=== PATIENT | female | born 2000 | race Two or more races ===

== ENCOUNTER 2025-04-28 02:37 | Emergency (ER) | payer MEDICAID, SELFPAY ==
[2025-04-28 02:59] VITALS: BP 114/77; PULSE 73; RESP 16; TEMP 37; O2SAT 98
--- NOTE | 2025-04-28 03:09 | EDNOTE_ITS ---
ED Headache RME/HPI General Chief Complaint: Headache Stated Complaint: HEADACHE X 2 DAYS Time Seen by Provider: 04/28/25 03:08 Arrival date/time: 04/28/25 02:37 24F with history of migraines presents to ED with 2 days of MCDERMOTT, N/V, and some light sensitivity. Patient took some Tylenol and generic Excedrin with only some relief. Patient denies URI symptoms and fall/trauma. Limitations: no limitations Related Data Previous Rx's ?Medication ?Instructions ?Recorded rimegepant 75 mg disintegrating 75 mg PO Q OTHER DAY P RN migraine 04/18/23 tablet (Nurtec ODT) headache #16 tabs misoprostol 200 mcg tablet 800 mcg (4 x 200 mcg) PO .x 1 #1 tab 08/16/23 (Cytotec) ibuprofen 600 mg tablet 600 mg PO TID PRN pain #30 t abs 08/27/23 rizatriptan 10 mg disintegrating See Rx Instructions P O .COMPLEX 04/28/25 tablet (Maxalt-REMEDIATION PROJECT ENGINEER) #20 tabs Allergies Allergy/AdvReac Type Severity Reaction Status Date / Time No Known Allergies Allergy Verified 04/28/25 02:42 Review of Systems Review of Systems Systems Reviewed: All systems reviewed, normal except as documented Constitutional Constitutional: Reports as per HPI and Reports headache(s) Eyes Eyes: Reports as per HPI and Reports photophobia ENT Ears, Nose, Mouth, and Throat: Reports headache(s) Gastrointestinal Gastrointestinal: Reports as per HPI and Reports nausea Neurologic Neurologic: Reports headache(s) Past Medical History Past Medical History NEUROLOGIC: Negative Neurological Disorders or Seizures CARDIAC: Negative Cardiac Disorders or Congestive Heart Failure RESPIRATORY: Negative Chronic Obstructive Pulmonary Disease (COPD) GASTROINTESTINAL: Negative Gastrointestinal Disorders GENITOURINARY: Negative Genitourinary Disorders or Renal Disease REPRODUCTIVE: Negative Pelvic Inflammatory Disease MUSCULOSKELETAL: Negative Musculoskeletal Disorders ENDOCRINE: Negative Endocrine Disorders, Diabetes Mellitus Type 1 or Diabetes Mellitus Type 2 HEMATOLOGIC: Negative Blood Disorders OTHER HISTORY: Negative Autoimmune Disease, Blood Transfusions, Blood Transfusion Reaction or Anesthesia Reactions Surgical History SURGICAL: Negative Section Social History SMOKING STATUS: Never smoker ED Exam General Limitations: Present no limitations General appearance: Present alert and in no apparent distress Head Head exam: Present atraumatic Eye Eye exam: Present normal appearance, PERRL and EOMI Neck Neck exam: Present normal inspection, full ROM and trachea midline Chest Chest inspection: Present normal inspection and symmetric chest wall rise Neurological Exam Neurological exam: Present alert and oriented X3 Psychiatric Psychiatric exam: Present normal affect and normal mood Skin Skin exam: Present warm, dry, intact and normal color Course Quality Measures none Orders Category Date Time Status Metoclopramide [Reglan] Med 04/28/25 03:08 Discontinued 10 mg PO X1 ONE SUMAtriptan INJ [Imitrex Inj] Med 04/28/25 03:08 Discontinued 6 mg SC X1 ONE Vital Signs Vital signs: Vital Signs Temperature 98.6 F 04/28/25 02:59 Pulse Rate 73 04/28/25 02:59 Respiratory Rate 16 04/28/25 02:59 Blood Pressure 114/77 04/28/25 02:59 Pulse Oximetry (%) 98 04/28/25 02:59 Oxygen Delivery Method Room Air 04/28/25 02:59 O2 at 98% on RA and WNLs Headache MDM Narrative MDM Narrative:: 24F with history of migraines presents to ED with 2 days of MCDERMOTT, N/V, and some light sensitivity. Patient took some Tylenol and generic Excedrin with only some relief. Patient denies URI symptoms and fall/trauma. Physical exam reveals normal pupil response and EOM. Gait normal. Speech normal. Patient is afebrile, calm, and alert. Migraine meds improved symptoms. Patient data External records reviewed:: [facility] previous records Clinical information provided by:: patient Social determinants that could affect healthcare access:: none Patient has the following chronic illnesses:: migraine How is presenting disease/condition affected by chronic disease/condition?: caused by Evaluation data The following diagnostics were reviewed and interpreted by me:: other (specify) (none) Lab and/or radiology exams considered but not ordered:: not ordered Interpretation Summary: n/a Medications / Prescriptions Medications or Prescriptions considered but not ordered:: ordered Medication administrations:: Medication Administration History Discontinued Medications Metoclopramide HCl (Metoclopramide 5 Mg Tablet) 10 mg PO X1 ONE Stop: 04/28/25 03:09 Last Admin: 04/28/25 03:46 Dose: 10 mg Documented By: LARA Sumatriptan Succinate (Sumatriptan Inj 6 Mg/0.5 Ml Vial) 6 mg SC X1 ONE Stop: 04/28/25 03:09 Last Admin: 04/28/25 03:46 Dose: 6 mg Documented By: RC above Consultations Consultation(s) initiated? (list below): No Diagnosis Differential diagnosis headache: migraine, tension headache, subarachnoid hemorrhage, headache, meningitis, sinusitis and postconcussion syndrome Most likely diagnosis given after review of the tests above:: migraine Admission Indicated Admission indicated?: not indicated Admission Request Was there a request for admission?: No Disposition Plan Disposition Plan: Discharge Discharge Attestation Discharge Attestation: The patient and all family members were given an opportunity to ask questions and understood the discharge instructions. Discharge instructions specifically effects, indications for sooner follow up or return to the emergency department, and the expected course of current diagnosis. Patient condition: Stable Discharge Plan Plan Patient Disposition: HOME (Self Care) Discharge Disposition comment: Stable Prescriptions/Referrals Prescriptions/Med Rec: New rizatriptan [Maxalt-REMEDIATION PROJECT ENGINEER] 10 mg tablet,disintegrating See Rx Instructions .ROUTE .COMPLEX Qty: 20 0RF Rx Instructions: take 1 tab at onset of headache; if no relief may repeat 1 tab after at least 2 hrs; max = 3 tabs/24 hr No Action Nurtec ODT 75 mg tablet,disintegrating 75 mg PO Q OTHER DAY PRN (Reason: migraine headache) Qty: 16 0RF misoprostol [Cytotec] 200 mcg tablet 800 mcg PO .x1 Qty: 1 0RF ibuprofen 600 mg tablet 600 mg PO TID PRN (Reason: pain) Qty: 30 0RF Referrals: Deny Mcduffie MD [Primary Care Provider, Family Practice] - In 1 week Problem List Clinical Impression: Migraine Patient/Caregiver Discharge Instructions Education Materials: ED Headache, Migraine, Classic Additional Instructions: Please follow-up with PCP within 24-48 hours and return immediately if symptoms worsen. Print Language: Amharic Stand Alone Forms: Patient Portal Info Letter AUGUSTINA/SHELLI Supervising Physician AUGUSTINA/SHELLI Supervising Physician: Dr. Lucas
[2025-04-28] MEDS: SUMAtriptan INJ 6 MG/0.5 ML VIAL SC (03:46)
[2025-04-28] MEDS: METOCLOPRAMIDE 5 MG TABLET 10 MG PO (03:46)
== END 2025-04-28 04:52 | disposition home or self-care (01) ==
PROVIDERS: Emergency Provider Emergency Medicine; PCP Family Medicine
DX: G43.909 Migraine, unspecified, not intractable, without status migrainosus (principal)
CPT/HCPCS: 96372; 99283; J3030; A9270

== ENCOUNTER 2025-05-15 13:51 | Emergency (ER) | payer MEDICAID, SELFPAY ==
[2025-05-15 14:39] VITALS: BP 105/67; PULSE 64; RESP 18; TEMP 36.7; O2SAT 99
--- NOTE | 2025-05-15 14:57 | XR_ITS ---
Examination: CT brain head without contrast. 2-D sagittal coronal reconstructions Date and time of exam: May 15, 2025, 1651 hours, comparison 04/18/2023 INDICATIONS: Onset generalized head pain today CTDI: vol (mGy): 46.6 DLP: (mGycm): 941 Technique: Multiple CT axial sections of the brain have been obtained, 5 mm slice thickness. Contrast has not been administered. 2-D sagittal, coronal reconstructions have been obtained Low dose protocols were performed. One or more of the following dose reduction techniques were used; automated exposure control, adjustment of the mA and/or KV according to patient size, use of iterative reconstruction technique. Findings: No significant ventricular enlargement. Intra-axial or extra-axial hemorrhage density is not seen. No mass effect or midline shift Basal cisterns are not remarkable. Fourth ventricle is midline. Cranial vault intact. Impression: Negative for acute hemorrhage, mass effect or midline shift Advise clinical correlation and follow-up accordingly
[2025-05-15 15:39] LABS: Basophils # (Auto) 0.1 Thou/mm3 (0.0-0.2); Basophils % (Auto) 1 % (0-2.5); Eosinophils # (Auto) 0.0 Thou/mm3 (0.0-0.5); Eosinophils % (Auto) 0 % (0-10); Hematocrit 41.1 % (36.0-46.0); Hemoglobin 14.2 g/dL (12.0-16.0); Immature Granulocytes Auto 0.03 Thou/mm3 (0.00-0.00); Lymphocytes # (Auto) 1.3 Thou/mm3 (1.0-4.8); Lymphocytes % (Auto) 15 % (10-50); Mean Corpuscular HGB Conc 34.5 g/dl (31.0-37.0); Mean Corpuscular Hemoglobin 30.5 pg (25.0-35.0); Mean Corpuscular Volume 88 fL (80-100); Monocytes # (Auto) 0.3 Thou/mm3 (0.0-0.8); Monocytes % (Auto) 4 % (0-12); Neutrophils # (Auto) 6.8 Thou/mm3 (1.8-7.7); Neutrophils % (Auto) 80 % (37-80); Nucleated Red Blood Cell # 0.00 Thou/mm3 (0.00-0.00); Nucleated Red Blood Cell % 0 /100 WBC (0); Platelet Count 369 Thou/mm3 (140-440); RDW Standard Deviation 42.5 fL (36.4-46.3); Red Blood Count 4.66 Miln/mm3 (4.00-5.20); White Blood Count 8.5 Thou/mm3 (3.6-11.0)
[2025-05-15 15:47] LABS: Collection Type, Urine Clean Catch
[2025-05-15 15:55] LABS: Alanine Aminotransferase 16 U/L (10-49); Albumin, Serum 4.5 gm/dL (3.5-5.0); Albumin/Globulin Ratio 1.9 (1.2-2.2); Alkaline Phosphatase 83 U/L (46-116); Anion Gap 10 (7-16); Aspartate Amino Transferase 17 U/L (0-34); BUN/Creatinine Ratio 15 Ratio (12-20); Bilirubin,Total 0.4 mg/dL (0.3-1.2); Blood Urea Nitrogen 9 mg/dL (9-23); Calcium 9.0 mg/dL (8.3-10.6); Calcium (Corrected) 9.0 mg/dL (8.5-10.1); Carbon Dioxide 27.1 mMol/L (20.0-31.0); Chloride 105 mMol/L (98-107); Creatinine (Component) 0.6 mg/dL (0.6-1.3); Globulin 2.4 gm/dL (2.3-3.5); Glucose 109 mg/dL (74-106); Osmolality,Calculated 282 (275-295); Potassium 3.6 mMol/L (3.4-5.1); Sodium 142 mMol/L (136-145); Total Protein 6.9 gm/dL (5.7-8.2); eGFR > 60 See Note
[2025-05-15 16:00] LABS: Bacteria,Urine Rare; Bilirubin,Urine Negative (Negative); Blood,Urine Trace (Negative); Clarity,Urine Clear (Clear/Hazy); Color,Urine Colorless (Lt Yel-Yel); Glucose, Urine Negative (Negative); Ketones,Urine Negative (Negative); Leukocyte Esterase,Urine Negative (Negative); Nitrite,Urine Negative (Negative); PH,Urine 6.5 (5.0-7.0); Protein,Urine Negative (Neg - Trace); RBC,Urine 2 /hpf (0-3); Specific Gravity,Urine 1.008 (1.001-1.035); Squamous Epithelial Cell,Urine 3 /hpf (0-5); Urobilinogen,Urine Negative mg/dL (0.0-1.0); WBC,Urine < 1 /hpf (0-5)
[2025-05-15 16:01] LABS: HCG Qualitative,Urine Negative
--- NOTE | 2025-05-15 17:28 | PD.EDHA ---
ED Headache RME/HPI General Chief Complaint: Headache Stated Complaint: HEADACHE Time Seen by Provider: 05/15/25 14:22 Arrival date/time: 05/15/25 13:51 This is a case of 54-year-old female with history of migraine headache came into the emergency room due to headache for 2 days right parietal throbbing in character no injury no trauma associated with nausea vomiting but no dizziness no blurring of vision denies any numbness weakness tingling sensation persistence of the symptoms this patient decided to sought consult here in the emergency room Limitations: no limitations Related Data Previous Rx's ?Medication ?Instructions ?Recorded rimegepant 75 mg disintegrating 75 mg PO Q OTHER DAY PRN migraine 04/18/23 tablet (Nurtec ODT) headache #16 tabs misoprostol 200 mcg tablet 800 mcg (4 x 200 mcg) PO .x1 #1 tab 08/16/23 (Cytotec) ibuprofen 600 mg tablet 600 mg PO TID PRN pain #30 tabs 08/27/23 rizatriptan 10 mg disintegrating See Rx Instructions PO .COMPLEX 04/28/25 tablet (Maxalt-SHEEP SORTER) #20 tabs ondansetron 4 mg disintegrating 4 mg PO Q6H PRN nausea and 05/15/25 tablet vomiting #10 tabs rimegepant 75 mg disintegrating 75 mg PO Q OTHER DAY PRN migraine 05/15/25 tablet (Nurtec ODT) headache #10 tabs Allergies Allergy/AdvReac Type Severity Reaction Status Date / Time No Known Allergies Allergy Verified 05/15/25 13:54 Review of Systems Review of Systems Systems Reviewed: All systems reviewed, normal except as documented Past Medical History Past Medical History NEUROLOGIC: Negative Neurological Disorders or Seizures CARDIAC: Negative Cardiac Disorders or Congestive Heart Failure RESPIRATORY: Negative Chronic Obstructive Pulmonary Disease (COPD) GASTROINTESTINAL: Negative Gastrointestinal Disorders GENITOURINARY: Negative Genitourinary Disorders or Renal Disease REPRODUCTIVE: Negative Pelvic Inflammatory Disease MUSCULOSKELETAL: Negative Musculoskeletal Disorders ENDOCRINE: Negative Endocrine Disorders, Diabetes Mellitus Type 1 or Diabetes Mellitus Type 2 HEMATOLOGIC: Negative Blood Disorders OTHER HISTORY: Negative Autoimmune Disease, Blood Transfusions, Blood Transfusion Reaction or Anesthesia Reactions Surgical History SURGICAL: Negative Section Social History SMOKING STATUS: Never smoker ED Exam General Limitations: Present no limitations General appearance: Present alert, in no apparent distress and other (Patient is awake alert oriented not in distress nontoxic looking well-hydrated well-nourished) Head Head exam: Present atraumatic, normocephalic and normal inspection Eye Eye exam: Present normal appearance, PERRL, EOMI and other (PERRL EOM intact normal conjunctiva no palpable edema) ENT ENT exam: Present normal exam, normal oropharynx, mucous membranes moist and other Neck Neck exam: Present normal inspection, full ROM, trachea midline and other; Absent tenderness, meningismus, lymphadenopathy or thyromegaly Chest Chest inspection: Present normal inspection and symmetric chest wall rise; Absent tenderness Respiratory Respiratory exam: Present normal lung sounds bilaterally; Absent respiratory distress, wheezes, stridor, accessory muscle use or prolonged expiratory phase Cardiovascular Cardiovascular exam: Present regular rate, normal rhythm and normal heart sounds; Absent bradycardia, tachycardia, irregular rhythm, systolic murmur or diastolic murmur Abdominal Exam Abdominal exam: Present soft and normal bowel sounds; Absent distention, tenderness, guarding, rebound, rigidity, diminished bowel sounds, hyperactive bowel sounds, hypoactive bowel sounds or organomegaly Extremities Exam Extremities exam: Present normal inspection and full ROM Back Exam Back exam: Present normal inspection and full ROM Neurological Exam Neurological exam: Present alert, oriented X3, CN II-XII intact, normal gait, reflexes normal and other (Awake alert oriented x 4 no focal deficit GCS 15/15 steady gait memory intact no slurring speech no facial droop motor or sensory reflex are all normal in all extremities CN II to XII is normal negative Babinski); Absent motor sensory deficit Psychiatric Psychiatric exam: Present normal affect and normal mood Skin Skin exam: Present warm, dry, intact, normal color and other (Excellent skin turgor) Course Quality Measures none Orders Category Date Time Status CT head/brain wo con Stat Exams 05/15/25 14:57 Completed CBC Stat Lab 05/15/25 15:19 Completed Comprehensive Metabolic Panel Stat Lab 05/15/25 15:19 Completed HCG Qualitative,Urine Stat Lab 05/15/25 15:38 Completed Urinalysis Stat Lab 05/15/25 15:38 Completed HYDROcodone*/APAP 5/325 [[place] 5/325] Med 05/15/25 17:28 Discontinued 1 tab PO X1 ONE Ketorolac Inj [Toradol Inj] Med 05/15/25 17:28 Discontinued 30 mg IM X1 ONE Ondansetron Odt [Zofran Odt] Med 05/15/25 17:28 Once 4 mg PO X1 ONE Vital Signs Vital signs: Vital Signs Temperature 98.0 F 05/15/25 14:39 Pulse Rate 64 05/15/25 14:39 Respiratory Rate 18 05/15/25 14:39 Blood Pressure 105/67 05/15/25 14:39 Pulse Oximetry (%) 99 05/15/25 14:39 Oxygen Delivery Method Room Air 05/15/25 14:39 Oxygen saturation is 99% in room air Headache MDM Narrative MDM Narrative:: This is a case of 54-year-old female with history of migraine headache came into the emergency room due to headache for 2 days right parietal throbbing in character no injury no trauma associated with nausea vomiting but no dizziness no blurring of vision denies any numbness weakness tingling sensation persistence of the symptoms this patient decided to sought consult here in the emergency room physical examination patient is awake alert oriented not in distress nontoxic looking well-hydrated well-nourished PERRL EOM intact normal conjunctiva no palpable edema neurological exam is normal awake alert oriented x 4 no focal deficit GCS 15/15 steady gait CN II through XII is normal motor or sensory reflex were normal negative Babinski memory intact no slurring speech no facial droop HEENT exam is normal and unremarkable the rest of the physical examination neurological exam is normal and unremarkable blood test showed no leukocytosis no anemia kidney liver function is normal no electrolyte imbalance urinalysis is normal patient is not CT scan of the head were unremarkable patient was given Toradol [place] and Zofran after 30 minutes patient was reassessed patient condition improved and resolved patient will follow-up with PCP in 2 days for reevaluation and to be referred to neurologist for further evaluation and treatment of headache I refilled her medication Nurtec for migraine headache and Zofran for nausea vomiting worsening recurrence persistent of any emergent concern call 911 or go to the nearest emergency room Patient was discharged with comfortable condition walking with stable gait. Patient verbalized no further complains explained diagnosis and answered patient question. Patient is comfortable with the proposed management plan including the need to follow up with his/her primary care physician and any specialist if applicable Discussed patient for any urgent condition or worsening sx, He/She needed to go to emergency room immediately or call 911. Patient acknowledge the responsibility to follow up as instructed and to monitor her/his symptoms. For any persistence of the symptoms for more than 3-5 days return precaution advised. Discussed the result of the test and was given printed discharge instruction Patient data External records reviewed:: [facility] previous records Clinical information provided by:: patient Social determinants that could affect healthcare access:: none Patient has the following chronic illnesses:: None How is presenting disease/condition affected by chronic disease/condition?: no chronic disease Evaluation data The following diagnostics were reviewed and interpreted by me:: lab results and radiology exam(s) Lab and/or radiology exams considered but not ordered:: Reviewed Interpretation Summary: Reviewed Medications / Prescriptions Medications or Prescriptions considered but not ordered:: Given Medication administrations:: Medication Administration History Ondansetron HCl (Ondansetron Odt 4 Mg Tabrap) 4 mg PO X1 ONE; Protocol Stop: 05/15/25 17:29 Discontinued Medications Hydrocodone Bitart/Acetaminophen (Hydrocodone/Apap 5/325 Tablet) 1 tab PO X1 ONE Stop: 05/15/25 17:29 Ketorolac Tromethamine (Ketorolac Inj 60 Mg/2 Ml Vial) 30 mg IM X1 ONE Stop: 05/15/25 17:29 Given Consultations Consultation(s) initiated? (list below): No Diagnosis Differential diagnosis headache: migraine, tension headache and sinusitis Most likely diagnosis given after review of the tests above:: Headache migraine Admission Indicated Admission indicated?: not indicated Explain why admission is indicated or not indicated:: Not indicated Admission Request Was there a request for admission?: No Admission Attestation Admission request attestation: Not indicated Disposition Plan Disposition Plan: Discharge Discharge Attestation Discharge Attestation: The patient and all family members were given an opportunity to ask questions and understood the discharge instructions. Discharge instructions specifically effects, indications for sooner follow up or return to the emergency department, and the expected course of current diagnosis. Patient condition: Stable Discharge Plan Plan Patient Disposition: HOME (Self Care) Patient condition on transfer: Stable Prescriptions/Referrals Prescriptions/Med Rec: New Nurtec ODT 75 mg tablet,disintegrating 75 mg PO Q OTHER DAY PRN (Reason: migraine headache) Qty: 10 0RF ondansetron 4 mg tablet,disintegrating 4 mg PO Q6H PRN (Reason: nausea and vomiting) Qty: 10 0RF No Action Nurtec ODT 75 mg tablet,disintegrating 75 mg PO Q OTHER DAY PRN (Reason: migraine headache) Qty: 16 0RF misoprostol [Cytotec] 200 mcg tablet 800 mcg PO .x1 Qty: 1 0RF ibuprofen 600 mg tablet 600 mg PO TID PRN (Reason: pain) Qty: 30 0RF rizatriptan [Maxalt-SHEEP SORTER] 10 mg tablet,disintegrating See Rx Instructions .ROUTE .COMPLEX Qty: 20 0RF Rx Instructions: take 1 tab at onset of headache; if no relief may repeat 1 tab after at least 2 hrs; max = 3 tabs/24 hr Referrals: Anna Iqbal MD [Primary Care Provider, Internal Medicine] - In 1 week Problem List Clinical Impression: Headache Patient/Caregiver Discharge Instructions Education Materials: Self-Care for Headaches Additional Instructions: Follow-up with your primary care physician in 2 days for reevaluation and to be referred to neurologist for further evaluation and treatment of your headache recurrence persistent worsening symptoms or any emergent concerns such as numbness weakness tingling sensation blurring of vision call 911 or go to the nearest emergency room take your medication as directed keep hydrated Pedialyte Gatorade for hydration is advised Print Language: Slovak Stand Alone Forms: [employer]ona Award Info., Patient Portal Info Letter PA/COMMUNITY HEALTH DIRECTOR Supervising Physician PA/COMMUNITY HEALTH DIRECTOR Supervising Physician: Dr. richard
--- NOTE | 2025-05-15 17:49 | PC.NURSE ---
pt did not answer.
[2025-05-15] MEDS: ONDANSETRON ODT 4 MG TABRAP PO (18:39)
[2025-05-15] MEDS: KETOROLAC INJ 60 MG/2 ML VIAL 30 MG IM (18:39)
[2025-05-15] MEDS: HYDROcodone/APAP 5/325 TABLET 1 TAB PO (18:39)
== END 2025-05-15 19:03 | disposition home or self-care (01) ==
PROVIDERS: Nurse Practitioner Family; Emergency Provider Emergency Medicine; PCP Student in an Organized Health Care Education/Training Program
DX: R51.9 Headache, unspecified (principal)
CPT/HCPCS: 36415; 70450; 80053; 81001; 81025; 85025; 96372; 99283; J1885; Q0162; A9270